=== PATIENT | female | born 1975 | race American Indian/Alaskan Native ===

== ENCOUNTER 2017-06-18 10:44 | Emergency (ER) | payer BC ==
[2017-06-18 10:53] VITALS: BMI 37.8
[2017-06-18 10:59] VITALS: RESP 18
--- NOTE | 2017-06-18 11:46 | ED PDOC ---
Arrival/HPI - General Chief Complaint: Lower Extremity Problem/Injury Time Seen by Provider: 06/18/17 10:53 Historian: Patient - History of Present Illness Narrative History of Present Illness (Text): 06/18/17 11:42 42-year-old female presents today with right leg pain and swelling. Patient states on May 30 she had right knee surgery. Patient states since then she' s been taking tramadol and then took Tylenol with codeine as well as Advil without improvement in her symptoms. Patient is now complaining of worsening pain to the posterior aspect of the knee and lower leg. Patient denies numbness weakness or tingling in the extremity. Patient states her physical therapist told her to have an ultrasound to make sure that there was no blood clot in the leg. Time/Duration: > week Symptom Onset: Gradual Symptom Course: Worsening Quality: Aching Severity Level: Severe Past Medical History - Provider Review Nursing Documentation Reviewed: Yes - Travel History Have you recently traveled outside [place] w/in the past 3 mons?: No - Infectious Disease Hx of Infectious Diseases: None - Tetanus Immunization Tetanus Immunization: Unknown - Cardiac Hx Cardiac Disorders: Yes Hx Hypertension: Yes - Pulmonary Hx Respiratory Disorders: Yes Hx Asthma: Yes - Neurological Hx Neurological Disorder: No - HEENT Hx HEENT Disorder: No - Renal Hx Renal Disorder: No - Endocrine/Metabolic Hx Endocrine Disorders: No - Hematological/Oncological Hx Blood Disorders: Yes Hx Anemia: Yes Hx Blood Transfusions: No - Integumentary Hx Dermatological Disorder: No - Musculoskeletal/Rheumatological Hx Musculoskeletal Disorders: Yes Other/Comment: R knee surgery - Gastrointestinal Hx Gastrointestinal Disorders: Yes Hx Gastritis: Yes - Genitourinary/Gynecological Hx Prostate Problems: No - Psychiatric Hx Anxiety: Yes Hx Depression: Yes Hx Substance Use: No - Surgical History Hx Section: Yes (1x) Other/Comment: R knee surgery - Anesthesia Hx Anesthesia: Yes Hx Anesthesia Reactions: No - Suicidal Assessment Feels Threatened In Home Enviroment: No Family/Social History - Physician Review Nursing Documentation Reviewed: Yes Family/Social History: Unknown Family HX Smoking Status: Never Smoked Hx Alcohol Use: No Hx Substance Use: No Allergies/Home Meds Allergies/Adverse Reactions: Allergies ondansetron HCl [From Zofran (as hydrochloride)] Allergy (Verified 06/18/17 10: 53) SHORTNESS OF BREATH Penicillins Allergy (Verified 06/18/17 10:53) RASH sumatriptan [From Imitrex] Adverse Reaction (Verified 06/18/17 10:53) ITCHING, TINGLING IN THROAT sumatriptan succinate [From Imitrex] Adverse Reaction (Verified 06/18/17 10:53) ITCHING, TINGLING IN THROAT Home Medications: Home Meds Medication Instructions Recorded Confirmed PARoxetine CR [Paxil CR] 1 tab PO HS 02/23/16 06/18/17 Topiramate [Topamax] 1 tab PO DAILY 02/23/16 06/18/17 clonazePAM [Klonopin] 1 tab PO BID 02/23/16 06/18/17 amLODIPine 1 tab PO DAILY 11/02/16 06/18/17 Review of Systems - Review of Systems Constitutional: absent: Fatigue, Fevers Respiratory: absent: SOB, Cough Cardiovascular: absent: Chest Pain, Palpitations Gastrointestinal: absent: Abdominal Pain, Diarrhea, Nausea, Vomiting Genitourinary Female: absent: Dysuria, Frequency, Hematuria Musculoskeletal: Arthralgias. absent: Back Pain Skin: absent: Rash, Pruritis Neurological: absent: Headache, Dizziness Psychiatric: absent: Anxiety, Depression Physical Exam Vital Signs Reviewed: Yes Vital Signs Temp Pulse Resp BP Pulse Ox 06/18/17 12:59 98.6 F 70 18 139/88 100 06/18/17 10:58 98.9 F 73 18 123/85 98 Temperature: Afebrile Blood Pressure: Normal Pulse: Regular Respiratory Rate: Normal Appearance: Positive for: Well-Appearing, Non-Toxic, Comfortable Pain Distress: None Mental Status: Positive for: Alert and Oriented X 3 - Systems Exam Head: Present: Atraumatic Mouth: Present: Moist Mucous Membranes Neck: Present: Normal Range of Motion Respiratory/Chest: Present: Clear to Auscultation, Good Air Exchange. No: Respiratory Distress, Accessory Muscle Use Cardiovascular: Present: Regular Rate and Rhythm, Normal S1, S2. No: Murmurs Lower Extremity: Present: NORMAL PULSES, Normal ROM, Tenderness, Neurovascularly Intact, Capillary Refill < 2 s. No: CALF TENDERNESS, Cyanosis, Swelling, Erythema, Deformity Neurological: Present: GCS=15, Speech Normal Skin: Present: Warm, Dry Psychiatric: Present: Alert, Oriented x 3 Medical Decision Making ED Course and Treatment: 06/18/17 11:4 Patient is nontoxic well-appearing in no distress with stable vital signs lungs are clear to auscultation bilaterally. no edema, no erythema, no ecchymosis; full rom of knee with pain; no calf tenderness. no warmth. sensation and distal pulses intact. no signs of infection. Venous duplex of the right lower extremity; FINDINGS: The visualized deep venous system of the right lower extremity is sonographically normal and compressible. Normal waveforms and augmentation are seen. There is no sonographic evidence for deep venous thrombosis in the visualized segments of the right lower extremity. IMPRESSION: 1. No sonographic evidence for deep venous thrombosis in the visualized segments of the right lower extremity. toradol given for pain Patient reassessment; patient is nontoxic well-appearing in no distress with stable vital signs case discussed with dr. betancourt; pt to f/u in the office on friday. pt has crutches for ambulation; I discussed the results with patient about followup with a primary care physician within the next 2 days as well as the orthopedist. I've advised return if symptoms worsen persist or if there's concerning symptoms develop. Impression: Leg pain Motrin every 6 hours as needed for pain rest, ice, elevation Followup primary care physician within the next 2 days Follow up with the orthopedist within the next 2 days Return if symptoms worsen persist or if new symptoms develop 06/18/17 16:00 - RAD Interpretation Radiology Orders: 06/18/17 11:05 DUPLEX LOWER EXTRM VEIN RIGHT [US] Stat - Medication Orders Current Medication Orders: Discontinued Medications Ketorolac Tromethamine (Toradol) 60 mg IM STAT STA Stop: 06/18/17 11:36 Last Admin: 06/18/17 11:46 Dose: 60 mg [facility] Pain Assessment Document 06/18/17 11:46 AB (Rec: 06/18/17 11:47 AB [id number]) Pain Reassessment Is this a pain reassessment? Yes Sleep Is patient sleeping during reassessment? No Presence of Pain Presence of Pain Yes Pain Scale Used Pain Scale Used Numeric Location Left, Right or Bilateral Right Upper or Lower Lower Pain Location Body Site Leg Foot Description Description Constant Intensity of Pain at present 7 Acceptable Level of Pain 2 Pain Behavior Grasping Site Aggravating Factors ADL's Alleviating Factors/Management Medication Techniques Heat Alleviating Factors Medication IM Administration Charges Document 06/18/17 11:46 AB (Rec: 06/18/17 11:47 [facility] [id number]) Injection Site MAR Injection Site Right Gluteus Medius Charges for Administration # of IM Administrations 1 Re-Assess: ESPERANZA Pain Assessment Document 06/18/17 12:46 AB (Rec: 06/18/17 12:57 NAV[facility] [id number]) Pain Reassessment Is this a pain reassessment? Yes Sleep Is patient sleeping during reassessment? No Presence of Pain Presence of Pain No Pain Scale Used Pain Scale Used Numeric Description Alleviating Factors/Management Medication Techniques Alleviating Factors Medication Disposition/Present on Arrival - Present on Arrival Any Indicators Present on Arrival: No History of DVT/PE: No History of Uncontrolled Diabetes: No Urinary Catheter: No History of Decub. Ulcer: No History Surgical Site Infection Following: None - Disposition Have Diagnosis and Disposition been Completed?: Yes Diagnosis: Leg pain Disposition: HOME/ ROUTINE Disposition Time: 12:31 Patient Plan: Discharge Condition: GOOD Discharge Instructions (ExitCare): Knee Pain (ED), Leg Pain (ED) Additional Instructions: Motrin every 6 hours as needed for pain rest, ice, elevation Followup primary care physician within the next 2 days Follow up with the orthopedist within the next 2 days Return if symptoms worsen persist or if new symptoms develop Prescriptions: Ibuprofen [Motrin] 600 mg PO Q6H PRN #20 tab PRN Reason: pain/fever reduction Referrals: Lilia Maharaj MD [Primary Care Provider] - Follow up with primary Kyaw Betancourt DO [Staff Provider] - Follow up with primary Forms: [facility] [employer] [facility] (L[place]ian), WORK NOTE
--- NOTE | 2017-06-18 12:20 | US ---
PROCEDURE: Right lower extremity venous US HISTORY: Leg pain and swelling. Evaluate for DVT. PHYSICIAN(S): Jarrett Castro M.D. TECHNIQUE: Duplex sonography and color-flow Doppler with graded compression were used to evaluate the deep venous system of the right lower extremity. The exam is somewhat limited by body habitus. FINDINGS: The visualized deep venous system of the right lower extremity is sonographically normal and compressible. Normal waveforms and augmentation are seen. There is no sonographic evidence for deep venous thrombosis in the visualized segments of the right lower extremity. IMPRESSION: 1. No sonographic evidence for deep venous thrombosis in the visualized segments of the right lower extremity.
[2017-06-18 13:00] VITALS: BP 139/88; PULSE 70; TEMP 98.6; O2SAT 100
== END 2017-06-18 12:58 | disposition home or self-care (01) ==
LOC: ED 10:44
DX: M79.604 Pain in right leg (principal); I10 Essential (primary) hypertension; Z98.890 Other specified postprocedural states
CPT/HCPCS: 93971; 96372; 99284; J1885